=== PATIENT | male | born 1975 | race African-American/Black ===

== ENCOUNTER → 2022-12-22 | Day surgery (SDC) | payer BC ==
[~2022-12-22] MED LIST: B-123000 MCG; CRESTOR10 MG PO; D3-5000125 MCG PO; FARXIGA10 MG PO; FISH OIL 1,0001 EACH PO; GLIPIZIDE-METF1 EAC2 PO; HYOSCYAMINE SULFATE 0.5 MG/ML INJ ONE; LACTATED RINGER'S 1,000 ML ONE; LIDOCAINE HCL 2% LOCAL INJ 5 ML SDV VIAL INJ ONE; LOSARTAN POTASS25 MG PO; MIDAZOLAM HCL 2 MG/2 ML VIAL ONE; OZEMPIC0.25 MG/0. SC; PROPOFOL IV EMULSION 10 MG/ML 20 ML VIAL ONE
[2022-12-22 17:09] VITALS: TEMP 97.6
[2022-12-22 17:40] VITALS: BP 120/75; PULSE 88; RESP 17; O2SAT 98
== END | disposition home or self-care (01) ==
LOC: OR 11:39
PROVIDERS: ATTEND Internal Medicine Gastroenterology
DX: Z12.11 Encounter for screening for malignant neoplasm of colon (principal); D12.3 Benign neoplasm of transverse colon; K57.30 Diverticulosis of large intestine without perforation or abscess without bleeding; K64.8 Other hemorrhoids; R12 Heartburn; E11.9 Type 2 diabetes mellitus without complications; I10 Essential (primary) hypertension; E78.5 Hyperlipidemia, unspecified; I44.0 Atrioventricular block, first degree; Z01.810 Encounter for preprocedural cardiovascular examination; Z79.85 Long-term (current) use of injectable non-insulin antidiabetic drugs; Z79.84 Long term (current) use of oral hypoglycemic drugs; Z79.899 Other long term (current) drug therapy
CPT/HCPCS: 36415; 45384; 82948; 93005; J1980; J2001; J2250; J2704; J7121; 45378